=== PATIENT | male | born 1990 | race Two or more races ===

== ENCOUNTER 2019-09-04 08:05 | Emergency (ER) | payer OTHER ==
[2019-09-04 10:19] LABS: PROTHROMBIN TIME 13.2 SEC (11.4-15.4)
--- NOTE | 2019-09-04 10:19 | RADIOLOGY REPORT (SQ) ---
EXAM DESCRIPTION: CHEST 2 VIEWS COMPLETED DATE/TIME: 09/04/2019 10:11 am REASON FOR STUDY: cough COMPARISON: None. EXAM PARAMETERS: NUMBER OF VIEWS: two views TECHNIQUE: Digital Frontal and Lateral radiographic views of the chest acquired. RADIATION DOSE: NA LIMITATIONS: none FINDINGS: LUNGS AND PLEURA: No opacities, masses or pneumothorax. No pleural effusion. MEDIASTINUM AND HILAR STRUCTURES: No masses or contour abnormalities. HEART AND VASCULAR STRUCTURES: Heart normal size. No evidence for failure. BONES: No acute findings. HARDWARE: None in the chest. OTHER: No other significant finding. IMPRESSION: NO ACUTE RADIOGRAPHIC FINDING IN THE CHEST. TECHNICAL DOCUMENTATION: JOB ID: [id number] [employer]- All Rights Reserved Reading location - IP/workstation name: [email or web address]
[2019-09-04 10:27] LABS: ALBUMIN 4.2 g/dL (3.5-5.0); ALKALINE PHOSPHATASE 308 U/L (38-126); ANION GAP 13 (5-19); ASPARTATE AMINO TRANSFERASE 160 U/L (17-59); BILIRUBIN,DIRECT 6.6 mg/dL (0.0-0.4); BILIRUBIN,TOTAL 7.8 mg/dL (0.2-1.3); BLOOD UREA NITROGEN 10 mg/dL (7-20); CARBON DIOXIDE 32 mmol/L (22-30); CHLORIDE 99 mmol/L (98-107); GLUCOSE 140 mg/dL (75-110); POTASSIUM 4.7 mmol/L (3.6-5.0); TOTAL PROTEIN 8.5 g/dL (6.3-8.2)
[2019-09-04 10:31] LABS: HEMATOCRIT 42.5 % (37.9-51.0); HEMOGLOBIN 15.2 g/dL (13.5-17.0); MEAN CORPUSCULAR HEMOGLOBIN 34.9 pg (27.0-33.4); MEAN CORPUSCULAR HGB CONC 35.7 g/dL (32.0-36.0); MEAN CORPUSCULAR VOLUME 98 fl (80-97); PLATELET COUNT 249 10^3/uL (150-450); RED BLOOD COUNT 4.36 10^6/uL (4.35-5.55); RED CELL DISTRIBUTION WIDTH 14.2 % (11.5-14.0); WHITE BLOOD COUNT 14.4 10^3/uL (4.0-10.5)
[2019-09-04 11:01] LABS: ABSOLUTE LYMPHOCYTES# (MANUAL) 6.6 10^3/uL (0.5-4.7); ABSOLUTE MONOCYTES # (MANUAL) 1.4 10^3/uL (0.1-1.4); BASOPHILS % (MANUAL) 0 % (0-2); EOSINOPHILS % (MANUAL) 0 % (0-6); LYMPHOCYTES % (MANUAL) 28 % (13-45); MONOCYTES % (MANUAL) 10 % (3-13); NUCLEATED RED BLOOD CELLS 1 /100 WBC (0); SEGMENTED NEUTROPHILS % (MAN) 44 % (42-78); TOTAL CELLS COUNTED 100
[2019-09-04 11:02] LABS: ANISOCYTOSIS SLIGHT; POLYCHROMASIA SLIGHT
[2019-09-04 11:03] LABS: PLATELET COMMENT ADEQUATE
--- NOTE | 2019-09-04 11:30 | RADIOLOGY REPORT (SQ) ---
EXAM DESCRIPTION: U/S ABDOMEN COMPLETE W/O DOP COMPLETED DATE/TIME: 09/04/2019 11:17 am REASON FOR STUDY: abd pain, generalized, hx mono COMPARISON: None. TECHNIQUE: Dynamic and static grayscale images acquired of the abdomen and recorded on PACS. Additio nal selected color Doppler and spectral images recorded. Note: Study does not meet criteria for complete doppler/duplex scan LIMITATIONS: None. FINDINGS: PANCREAS: No masses. Visualized pancreatic duct normal caliber. LIVER: No masses. Echotexture normal. LIVER VASCULATURE: Normal directional flow of the main portal vein and hepatic veins. GALLBLADDER: The gallbladder is contracted. The patient has not been NPO. ULTRASOUND-DETECTED VERMA'S SIGN: Negative. INTRAHEPATIC DUCTS AND COMMON DUCT: CBD and intrahepatic ducts normal caliber. No filling defects. INFERIOR VENA CAVA: Normal flow. AORTA: No aneurysm. RIGHT KIDNEY: Normal size. Normal echogenicity. No solid or suspicious masses. No hydronephros is. No calcifications. LEFT KIDNEY: Normal size. Normal echogenicity. No solid or suspicious masses. No hydronephrosi s. No calcifications. SPLEEN: Spleen is measured 13.9 cm. PERITONEAL AND PLEURAL SPACES: No ascites or effusions. OTHER: No other significant finding. IMPRESSION: Mild splenomegaly. Contracted gallbladder. TECHNICAL DOCUMENTATION: JOB ID: [id number] [employer]- All Rights Reserved Reading location - IP/workstation name: [email or web address]
[2019-09-04 11:32] VITALS: BP 123/75
[2019-09-04 11:34] LABS: APPEARANCE,URINE CLEAR; BILIRUBIN,URINE NEGATIVE (NEGATIVE); GLUCOSE, URINE NEGATIVE (NEGATIVE); KETONES,URINE NEGATIVE (NEGATIVE); LEUKOCYTE ESTERASE,URINE NEGATIVE (NEGATIVE); NITRITE,URINE NEGATIVE (NEGATIVE); PROTEIN,URINE NEGATIVE (NEGATIVE); URINE SPECIFIC GRAVITY 1.008; UROBILINOGEN,URINE NEGATIVE mg/dL (<2.0)
[2019-09-04 11:37] LABS: COLOR,URINE YELLOW
[2019-09-04] MEDS ORDERED: DIPHENHYDRAMINE HCL 25 MG CAPSULE PO ONE (11:59)
--- NOTE | 2019-09-04 13:52 | ER Document Report ---
ED General - General Chief Complaint: Rash Stated Complaint: POSSIBLE ALLERGIC REACTION Time Seen by Provider: 09/04/19 09:14 Primary Care Provider: DEIDRA STEWART MD [ACTIVE STAFF] - 09/10/19 3:00 pm (Dr Garcia office will be calling you to confirm this appointment. ) Mode of Arrival: Ambulatory Information source: Patient Notes: This 28-year-old male presents emergency department with reports that he was evaluated 2 weeks ago, August 24, for a sore throat by the urgent care. He was diagnosed with mono at that time. He was prescribed medication for a cough and sore throat, benzonatate and Phenergan. He reports he has not been going to work at a [employer], he has been taking it easy. He reports that on September 02 he developed a very itchy rash. He again went to the urgent care and was prescribed steroids. He is still taking the steroids. He reports this morning he looked in the mirror and noticed his eyes were yellow. He reports the rash is itchy has been taking Benadryl for that. He also reports that on Monday he had a fever of 102 but he has not had a fever since that time. He reports last week he vomited and he had a little runny stool yesterday. No other symptoms except itchy rash and yellow eyes this morning. TRAVEL OUTSIDE OF THE [place] IN LAST 30 DAYS: No - HPI Onset: This morning Onset/Duration: Sudden Quality of pain: No pain Associated symptoms: None Exacerbated by: Denies Relieved by: Denies Similar symptoms previously: Yes Recently seen / treated by doctor: Yes - Related Data Allergies/Adverse Reactions: azithromycin [From Zithromax] Allergy (Verified 09/04/19 08:08) Penicillins Allergy (Verified 09/04/19 08:08) Home Medications: stopped taking steroids yesterday. Past Medical History - General Information source: Patient - Social History Smoking Status: Never Smoker Chew tobacco use (# tins/day): No Frequency of alcohol use: Social Drug Abuse: None Occupation: [employer] Lives with: Family Family History: None Patient has suicidal ideation: No Patient has homicidal ideation: No - Medical History Medical History: Negative Surgical Hx: Negative Review of Systems - Review of Systems Notes: Review HPI for review of systems., All other systems negative Physical Exam - Vital signs Vitals: Temp Pulse Resp BP Pulse Ox 97.9 F 94 18 141/89 H 97 09/04/19 08:09 09/04/19 08:09 09/04/19 08:09 09/04/19 08:09 09/04/19 08:09 - General General appearance: Appears well, Alert In distress: None - HEENT Head: Normocephalic Eyes: Normal Conjunctiva: Icteric Extraocular movements intact: Yes Eyelashes: Normal Pupils: PERRL Ears: Normal External canal: Normal Mucous membranes: Normal, Moist Pharynx: Erythema, Tonsillar hypertrophy Neck: Normal, Lymphadenopathy, Supple - Respiratory Respiratory status: No respiratory distress Chest status: Nontender Breath sounds: Normal Chest palpation: Normal - Cardiovascular Rhythm: Regular Heart sounds: Normal auscultation Murmur: No - Abdominal Inspection: Normal Distension: No distension Bowel sounds: Normal Tenderness: Nontender Organomegaly: No organomegaly - Back Back: Normal, Nontender - Extremities General upper extremity: Nontender, Normal ROM, Normal strength General lower extremity: Nontender, Normal ROM, Normal strength - Neurological Neuro grossly intact: Yes Cognition: Normal Orientation: AAOx4 [place] Coma Scale Eye Opening: Spontaneous [place] Coma Scale Verbal: Oriented [place] Coma Scale Motor: Obeys Commands Frohna Coma Scale Total: 15 Speech: Normal - Psychological Associated symptoms: Normal affect, Normal mood - Skin Skin Temperature: Warm Skin Moisture: Dry Skin irregularity: Erythema Location of irregularity: Abdomen, Chest, Back, Extremities Character of irregularity: Macular, Maculopapular, Urticarial Course - Re-evaluation Re-evalutation: 09/04/19 This 28-year-old male presents to the emergency department with recent history of mono itchy rash and developed yellow eyes this a.m. White count noted of 14.4. Total bili elevated at 7.8 and direct bili of 6.6. Patient LFTs elevated. X-ray was negative abdominal ultrasound shows splenomegaly. Consulted Dr. Harman. Advised recheck mono and hepatitis panel. Hepatitis panel ordered which is a send out will be returning in 2- 3 days. [place] is positive. Patient updated on all lab results. He does not have a primary care provider he does have insurance. Contacted Dr. Stewart for GI follow-up, waiting for return call. 09/04/19 09:00 09/04/19 09:00 MCV 98 fl (80-97) H 09/04/19 09:00 MCH 34.9 pg (27.0-33.4) H 09/04/19 09:00 MCHC 35.7 g/dL (32.0-36.0) 09/04/19 09:00 RDW 14.2 % (11.5-14.0) H 09/04/19 09:00 Seg Neutrophils % Not Reportable 09/04/19 09:00 Chloride 99 mmol/L (98-107) 09/04/19 09:00 Carbon Dioxide 32 mmol/L (22-30) H 09/04/19 09:00 Anion Gap 13 (5-19) 09/04/19 09:00 Est GFR ( Amer) > 60 (>60) 09/04/19 09:00 Glucose 140 mg/dL (75-110) H 09/04/19 09:00 Calcium 10.0 mg/dL (8.4-10.2) 09/04/19 09:00 Calcium Cancelled 09/04/19 09:00 Total Bilirubin 7.8 mg/dL (0.2-1.3) H 09/04/19 09:00 AST 160 U/L (17-59) H 09/04/19 09:00 Alkaline Phosphatase 308 U/L (38-126) H 09/04/19 09:00 Total Protein 8.5 g/dL (6.3-8.2) H 09/04/19 09:00 Albumin 4.2 g/dL (3.5-5.0) 09/04/19 09:00 Albumin Cancelled 09/04/19 09:00 Urine Color YELLOW 09/04/19 09:00 Urine Appearance CLEAR 09/04/19 09:00 Urine pH 7.0 (5.0-9.0) 09/04/19 09:00 Ur Specific [place] 1.008 09/04/19 09:00 Urine Protein NEGATIVE mg/dL (NEGATIVE) 09/04/19 09:00 Urine Glucose (UA) NEGATIVE mg/dL (NEGATIVE) 09/04/19 09:00 Urine Ketones NEGATIVE mg/dL (NEGATIVE) 09/04/19 09:00 Urine Blood NEGATIVE (NEGATIVE) 09/04/19 09:00 Urine Nitrite NEGATIVE (NEGATIVE) 09/04/19 09:00 Ur Leukocyte Esterase NEGATIVE (NEGATIVE) 09/04/19 09:00 Urine WBC (Auto) 0 /HPF 09/04/19 09:00 Abdomen Ultrasound 09/04/19 10:02 IMPRESSION: Mild splenomegaly. Contracted gallbladder. Chest X-Ray 09/04/19 10:02 IMPRESSION: NO ACUTE RADIOGRAPHIC FINDING IN THE CHEST. 09/04/19 14:29 Dr. Stewart returned call. He reports he has reviewed patient's labs. He advised repeat labs on Monday. He also reports he will schedule appointment with patient next Monday probably at 1500 but his office will call the patient. He advised fluids rest. We discussed prednisone patient is still taking he reports that is okay if he continues with that. Patient and patient's mother were instructed on all results plan for follow-up with lab this Monday for repeat LFT INR and appointment next Monday with Dr. Stewart but they were also instructed that the office will call to confirm that date in time. - Vital Signs Vital signs: Temp Pulse Resp BP Pulse Ox 97.9 F 94 18 123/75 99 09/04/19 08:09 09/04/19 08:09 09/04/19 10:01 09/04/19 10:01 09/04/19 10:01 - Laboratory Result Diagrams: 09/04/19 09:00 09/04/19 09:00 Laboratory results interpreted by me: 09/04/19 09/04/19 09/04/19 09:00 09:00 09:00 WBC 14.4 H MCV 98 H MCH 34.9 H RDW 14.2 H Abs Lymphs (Manual) 6.6 H Carbon Dioxide 32 H Glucose 140 H Total Bilirubin 7.8 H Direct Bilirubin 6.6 H AST 160 H Alkaline Phosphatase 308 H Total Protein 8.5 H Urine Ascorbic Acid 40 H Monotest 09/04/19 09:00 WBC MCV MCH RDW Abs Lymphs (Manual) Carbon Dioxide Glucose Total Bilirubin Direct Bilirubin AST Alkaline Phosphatase Total Protein Urine Ascorbic Acid Monotest POSITIVE H - Diagnostic Test Radiology reviewed: Image reviewed, Reports reviewed - Consults JIN Reason for consultation: 09/04/19 18:56 ELEVATED LFT, HX MONO Consulted provider: follow-up in office Discharge - Discharge Clinical Impression: Mononucleosis, Elevated liver enzymes Condition: Stable Disposition: HOME, SELF-CARE Instructions: Gastroenterology, Liver Function Abnormality ([facility]), Mononucleosis ([facility]) Additional Instructions: *You have been evaluated for jaunice, mononucleosis, elevated liver enzymes *Rest!!! No sports! Push fluids *Follow up with Dr. Stewart September 10 at 1500. His office will be calling you to confirm this appointment-it is possible that he may change the date or time. *Follow-up this September 06 for repeat labs, liver enzymes. *Return to ED for worsening condition, changes, needs Forms: Follow-Up Laboratory Testing, Return to Work Referrals: DEIDRA STEWART MD [ACTIVE STAFF] - 09/10/19 3:00 pm (Dr Garcia office will be calling you to confirm this appointment. )
[2019-09-05 13:26] LABS: PATH REVIEW PATHOLOGIST REVIEWED
[2019-09-05 15:36] LABS: HEPATITS B SURFACE ANTIGEN Negative (Negative)
[2019-09-06 07:33] LABS: HEPATITIS C VIRUS ANTIBODY 0.1 s/co ratio (0.0-0.9)
== END 2019-09-04 14:00 | disposition home or self-care (01) ==
LOC: ER 08:05
DX: B27.90 Infectious mononucleosis, unspecified without complication (principal); R74.8 Abnormal levels of other serum enzymes; R21 Rash and other nonspecific skin eruption; Z88.3 Allergy status to other anti-infective agents; Z88.0 Allergy status to penicillin
CPT/HCPCS: 36415; 71046; 76700; 80053; 80074; 81001; 85025; 85610; 86308; 99284

== ENCOUNTER 2019-09-05 16:10 | Emergency (ER) | payer OTHER ==
[2019-09-05 16:14] VITALS: BP 153/86
[2019-09-05] MEDS ORDERED: FAMOTIDINE 20 MG TABLET PO ONE (16:54)
--- NOTE | 2019-09-05 16:54 | ER Document Report ---
ED Skin Rash/Insect Bite/Abscs - General Chief Complaint: Rash Stated Complaint: RASH Time Seen by Provider: 09/05/19 16:45 Mode of Arrival: Ambulatory Information source: Patient Notes: 28-year-old male presented to ED for rash since Monday. He states the main reason he came back today is because he is not getting any relief from his rash with his Benadryl. He states the rash is keeping him awake and he is not able to sleep. I have instructed him concerning a mono rash that it is itchy there is no magic pill to take it away there are things that he can put on it topically and he can use Pepcid along with his Benadryl. TRAVEL OUTSIDE OF THE [place] IN LAST 30 DAYS: No - HPI Patient complains to provider of: Skin rash/lesion Onset: Other - Monday Onset/Duration: Persistent Quality of pain: No pain - Itching Severity: None Pain Level: Denies Skin Character: Rash Quality of rash: Itchy Identify cause: Yes - [place] Exacerbated by: Other - Warm showers Relieved by: Denies Similar symptoms previously: Yes Recently seen / treated by doctor: Yes - Related Data Allergies/Adverse Reactions: azithromycin [From Zithromax] Allergy (Verified 09/04/19 08:08) Penicillins Allergy (Verified 09/04/19 08:08) Past Medical History - General Information source: Patient - Social History Smoking Status: Never Smoker Chew tobacco use (# tins/day): No Frequency of alcohol use: None Drug Abuse: None Lives with: Family Family History: None Patient has suicidal ideation: No Patient has homicidal ideation: No - Past Medical History Cardiac Medical History: Reports: None Pulmonary Medical History: Reports: None EENT Medical History: Reports: None Neurological Medical History: Reports: None Endocrine Medical History: Reports: None Renal/ Medical History: Reports: None Malignancy Medical History: Reports None GI Medical History: Reports: None Musculoskeletal Medical History: Reports None Skin Medical History: Reports None Traumatic Medical History: Reports: None Infectious Medical History: Reports: None Surgical Hx: Negative - Immunizations Immunizations up to date: Yes Hx Diphtheria, Pertussis, Tetanus Vaccination: Yes Review of Systems - Review of Systems Constitutional: No symptoms reported EENT: No symptoms reported Cardiovascular: No symptoms reported Respiratory: No symptoms reported Gastrointestinal: No symptoms reported Genitourinary: No symptoms reported Male Genitourinary: No symptoms reported Musculoskeletal: No symptoms reported Skin: Rash Hematologic/Lymphatic: No symptoms reported Neurological/Psychological: No symptoms reported -: Yes All other systems reviewed and negative Physical Exam - Vital signs Vitals: Temp Pulse Resp BP Pulse Ox 98 F 98 18 153/86 H 96 09/05/19 16:11 09/05/19 16:11 09/05/19 16:11 09/05/19 16:11 09/05/19 16:11 Interpretation: Normal - General General appearance: Appears well, Alert - HEENT Head: Normocephalic, Atraumatic Eyes: Normal Pupils: PERRL - Respiratory Respiratory status: No respiratory distress Chest status: Nontender Breath sounds: Normal Chest palpation: Normal - Cardiovascular Rhythm: Regular Heart sounds: Normal auscultation Murmur: No - Abdominal Inspection: Normal Distension: No distension Bowel sounds: Normal Tenderness: Nontender Organomegaly: No organomegaly - Back Back: Normal, Nontender - Extremities General upper extremity: Normal inspection, Nontender, Normal color, Normal ROM, Normal temperature General lower extremity: Normal inspection, Nontender, Normal color, Normal ROM, Normal temperature, Normal weight bearing. No: Denisse's sign - Neurological Neuro grossly intact: Yes Cognition: Normal Orientation: AAOx4 [place] Coma Scale Eye Opening: Spontaneous [place] Coma Scale Verbal: Oriented [place] Coma Scale Motor: Obeys Commands [place] Coma Scale Total: 15 Speech: Normal Motor strength normal: LUE, RUE, LLE, RLE Sensory: Normal - Psychological Associated symptoms: Normal affect, Normal mood - Skin Skin Temperature: Warm Skin Moisture: Dry Skin Color: Normal Skin irregularity: Rash Location of irregularity: Abdomen, Chest, Extremities Character of irregularity: Maculopapular, Erythematous Course - Re-evaluation Re-evalutation: 09/05/19 22:32 He was treated with Pepcid in the emergency room given instructions on Benadryl cream and calamine lotion and Caladryl lotion cool showers ice packs to the area that are very itchy in the please stop scratching and stop using hot showers. Patient instructed to follow-up with his primary care doctor and to follow-up with labs as he has been instructed. Patient verbalized understanding and agree with treatment plan patient was discharged home - Vital Signs Vital signs: Temp Pulse Resp BP Pulse Ox 98 F 98 18 153/86 H 96 09/05/19 16:11 09/05/19 16:11 09/05/19 16:11 09/05/19 16:11 09/05/19 16:11 Discharge - Discharge Clinical Impression: Viral rash, Elevated liver enzymes Mononucleosis Qualifiers: Infectious mononucleosis etiology: unspecified organism Infectious mononucleosis complication: without complication Qualified Code(s): B27.90 - Infectious mononucleosis, unspecified without complication Disposition: HOME, SELF-CARE Instructions: Family Physicians / Practices Additional Instructions: Mononucleosis You have been diagnosed as having mononucleosis ("mono"). This is a viral infection which often lasts several weeks. Typically, a week or two of tiredness precedes a sore throat, swollen glands, fever, and aches. Sometimes there's a rash. In severe cases, swollen spleen and liver develop. There is no cure for mononucleosis. You should rest, drink plenty of fluids, and avoid contact sports until you are better. A follow-up examination is usually done in about a week. Further laboratory testing may be necessary then. See the doctor if there is significant worsening of the symptoms or onset of new symptoms such as severe headache, stiff neck, generalized abdominal pain, or faintness. Benzodiazepines You have been given a benzodiazepine medication. Examples of this type of medicine include Valium, Xanax, Librium, Ativan, and Halcion. Benzodiazepines have many uses. Medications of this type are used for insomnia, anxiety, muscle spasms, seizures, and drug and alcohol withdrawal. You may become very drowsy when you first take the medication. You should not drive or operate machinery while under its effects. Do not combine the medication with alcohol, or with any other medication without talking to your doctor. Do not take if without specific instruction from your line mechanic. Some benzodiazepines may have harmful interactions with oral antifungal medicines such as ketoconazole, itraconazole, and nefazodone. If you are taking an antifungal medicine, discuss this with your doctor before taking benzodiazepines. Acid-Suppressing Medication You have a prescription for medicine which reduces the stomach's secretion of acid. Examples include Zantac, Tagament, and Pepcid. These drugs are often used to allow healing of ulcers or esophagitis. They may be needed to prevent recurrence of ulcers in some patients, or to prevent damage from acid reflux in the esophagus. Take all medication as prescribed, even after the pain is gone. Regular antacids may be added as needed if you have symptoms while taking this medicine. These medications sometimes are prescribed for allergic reactions because they have anti-histaminic effects and relieve the rash and itching of the reaction. There are usually no side effects from this medication. But, in rare cases and particularly in the elderly, serious problems can occur. Contact your doctor if there is fever, rash, hallucinations, confusion, or unusual bruising. Contact your doctor at once if you develop lightheadedness, black or bloody stool, or bloody vomitus. Use calamine lotion, Benadryl lotion, Caladryl lotion, oatmeal baths, what ever will soothe your rash. Please use cold water or lukewarm water baths do not use hot water as this will increase the itch. When you need to scratch please use ice pack instead of scratching this will increase your itching. Take medications as prescribed by the provider yesterday. Please follow-up and get your liver functions retested. Please follow-up with your primary care doctor as instructed yesterday I have greeted and performed a rapid initial assessment of this patient. A comprehensive ED assessment and evaluation of the patient, analysis of test results and completion of medical decision making process will be conducted by an additional ED providers. Forms: Elevated Blood Pressure
== END 2019-09-05 17:08 | disposition home or self-care (01) ==
LOC: ER 16:10
DX: B27.90 Infectious mononucleosis, unspecified without complication (principal); R21 Rash and other nonspecific skin eruption; R74.8 Abnormal levels of other serum enzymes; Z88.1 Allergy status to other antibiotic agents; Z88.0 Allergy status to penicillin
CPT/HCPCS: 99283

== ENCOUNTER → 2019-09-06 | Outpatient (CLI) | payer OTHER ==
[2019-09-06 15:32] LABS: INTERNATIONAL RATION (INR) 0.97; PROTHROMBIN TIME 12.9 SEC (11.4-15.4)
[2019-09-06 15:49] LABS: ALBUMIN 3.9 g/dL (3.5-5.0); ALKALINE PHOSPHATASE 305 U/L (38-126); ASPARTATE AMINO TRANSFERASE 190 U/L (17-59); BILIRUBIN,DIRECT 3.8 mg/dL (0.0-0.4); BILIRUBIN,TOTAL 4.7 mg/dL (0.2-1.3); TOTAL PROTEIN 7.8 g/dL (6.3-8.2)
== END ==
LOC: OD 14:32
PROVIDERS: ATTEND Nurse Practitioner Family
DX: B27.90 Infectious mononucleosis, unspecified without complication (principal)
CPT/HCPCS: 36415; 80076; 85610